=== PATIENT | female | born 1955 | race Caucasian/White ===

== ENCOUNTER 2019-01-19 08:03 | Inpatient (IN) | payer BC, MEDICARE ==
[2019-01-19] VITALS (10 sets, daily range): BP systolic 105–135; BP diastolic 54–68
[~2019-01-19] VITALS: Ht 167.6 cm; Wt 83.2 kg
[~2019-01-19 08:03] MED LIST: ASCO1CAP2 PO; ASPI81TA50 PO; CHOL10003 PO; CYAN10005 PO; ESTR1TAB15 PO; HYDROmorphone 2 MG/ML VIAL IV PRN; IV RINGERS,LACTATED 1000ML 1,000 ML IV SCH; LEVO112T4 PO; LISI10TA2 PO; LISI1TAB7 PO; MAGN400C PO; MORPHINE SULFATE 2 MG/ML VIAL. IV PRN; MULT1TAB52 PO; NIAC500T PO; NITR100C62 PO; OMEG-117 PO; OMEP20CA10 PO; ONDANSETRON PF 4 MG/2 ML VIAL. IV PRN; PROCHLORPERAZINE 10 MG/2 ML VIAL. IV PRN; [UNRECOGNIZED DRUG - OTHER] PO; fentaNYL PF VIAL 100 MCG/2 ML VIAL IV PRN; potassium otc
[2019-01-19] MEDS ORDERED: BUPIVAC MPF-EPI 0.5%-1:200000 30 ML VIAL. ONE (09:12)
[2019-01-19] MEDS ORDERED: fentaNYL PF VIAL 100 MCG/2 ML VIAL ONE ×2 (09:19→12:46)
[2019-01-19] MEDS ORDERED: PROPOFOL 20 ML IV ONE (09:19)
[2019-01-19] MEDS ORDERED: LIDOCAINE 2% PF 5 ML VIAL. ONE (09:19)
[2019-01-19] MEDS ORDERED: MIDAZOLAM HCL/PF 2 MG/2 ML VIAL. ONE (09:19)
[2019-01-19] MEDS ORDERED: DEXAMETHASONE SOD PHOS 4 MG/ML VIAL ONE (09:19)
[2019-01-19] MEDS ORDERED: ONDANSETRON PF 4 MG/2 ML VIAL. ONE (09:19)
[2019-01-19] MEDS ORDERED: ROCURONIUM 50 MG/5 ML VIAL. ONE ×2 (09:19→11:05)
[2019-01-19] MEDS ORDERED: ACETAMINOPHEN 500 MG TABLET PO ONE (09:30)
[2019-01-19] MEDS ORDERED: IBUPROFEN 400 MG TABLET. PO ONE (09:30)
[2019-01-19] MEDS ORDERED: KETAMINE HCL IN NACL, ISO-OSM 50 MG/5 ML SYRINGE ONE (09:52)
[2019-01-19] MEDS ORDERED: NEOSTIGMINE METHYLSULFATE 5 MG/5 ML SYRINGE. ONE (10:17)
[2019-01-19] MEDS ORDERED: GLYCOPYRROLATE 1 MG/5 ML VIAL. ONE (10:17)
[2019-01-19] MEDS ORDERED: hydrALAZINE 20 MG/ML VIAL. ONE (10:35)
[2019-01-19] MEDS ORDERED: ePHEDrine PF IN SALINE 50 MG/10 ML SYRINGE. IV ONE (11:36)
[2019-01-19] MEDS ORDERED: SEVOFLURANE > 120 MINUTES. IH ONE (12:13)
[2019-01-19] MEDS ORDERED: 0.9 % SODIUM CHLORIDE 10 ML DISP.SYRIN. IV PRN (12:45)
[2019-01-19] MEDS ORDERED: PROCHLORPERAZINE 10 MG/2 ML VIAL. IV PRN (12:45)
[2019-01-19] MEDS ORDERED: HYDROmorphone 12mg/30ml PCA 30 ML IV PRN (12:45)
[2019-01-19] MEDS ORDERED: ONDANSETRON PF 4 MG/2 ML VIAL. IV PRN (12:45)
[2019-01-19] MEDS: fentaNYL PF VIAL 100 MCG/2 ML VIAL IV PRN ×2 (12:53→13:05)
--- NOTE | 2019-01-19 13:03 | PDOC4 ---
Operative Note Operative Note Operative Note: Preoperative Diagnosis: Terminal ileitis Postoperative Diagnosis: Same Procedure: Laparoscopic right colon resection Surgeon: Grover Puppet Developer: Ashley RIOS Anesthesia: Gen. EBL: 50 mL Specimen: Right colon to pathology Drains: Ronald drain to subcutaneous tissue Complications: None Indication: The patient is a 63-year-old female who has been expressing chronic intermittent right lower quadrant pain. Her prior endoscopic evaluation identified an ulcer at the ileocecal valve. A follow-up endoscopy showed some improvement of the ulcer however she continued to have friability and inflammation of the region. Has been no other source to explain her symptoms. Christy oates was referred to consider surgical options. We discussed that a laparoscopic right colon resection could be performed and may be of benefit. However there is no absolute guarantee. The risks of surgery were discussed at length with the patient which include bleeding, infection, anastomotic leak, visceral injury, pain, anesthetic risk, potential need for additional surgery or procedure, continued symptoms. She understands and would like to proceed. Description: The patient was taken to the operating room placed supine on the operating table. Gen. anesthesia was performed. The abdomen was prepped with Ch loraPrep and draped in a standard surgical manner. A small incision was made in the left upper abdomen through which a visualized 5 mm trocar was inserted. A pneumoperitoneum was created and the laparoscope was introduced. In the left lower quadrant a 5 mm trocar was inserted and in the lower midabdomen and another 5 mm trocar was inserted. Initial inspection showed a normal appearing cecum was some degree of redundancy. The terminal ileum was grossly normal. The appendix was also visualized and showed no abnormalities. The small bowel was run distal to proximal and there was no evidence of a Meckel's diverticulum. We proceeded with a laparoscopic right colectomy. The lateral peritoneal attachments of the entire ascending colon were divided using a Harmonic scalpel. Another 5 mm trochar was placed in the superior midabdomen. The hepatic flexure attachments were also taken down. The duodenum was identified and preserved. At this point there was excellent mobility of the entire right colon and proximal transverse colon. A small midline extraction incision was then made with a scalpel. Cautery dissection was carried down to the fascia and the fascia was opened for the length of the incision. The Eliu retractor was then placed. The terminal ileum and right colon were then delivered extracorporeally. The distal ileum was divided with a JUDIT-75 stapling device. Similarly the proximal mcpherson sverse colon was divided with a stapler load. The mesentery of the right colon was then dissected. Blood vessels were ligated with 2-0 Vicryl and divided. The LigaSure device assisted with mesenteric dissection. The right colon was then fully excised and sent to pathology. A stapled side to side functional end-to-end anastomosis was then constructed. Small enterotomies were made in both the distal ileum and colon segments. The stapler was introduced into each limb of bowel and deployed creating the anastomosis. The common enterotomy was oversewn with 3-0 PDS. All of the staple lines were reinforced with 3-0 Vicryl sutures placed in the seromuscular layer. The mesenteric defect was then closed with 2-0 Vicryl and the bowel was returned intracorporeally. The fascia was closed with 1 PDS. The abdomen was then reinsufflated and reinspected. Hemostasis was good and the anastomosis had an appropriate configuration with no tension. The pneumoperitoneum was then relieved and the laparoscopic ports were then removed. A quarter inch [place] drain was left in the midline incision which exited inferiorly. This was secured to the skin with 3-0 Vicryl. The subcutaneous tissue was approximated with 3-0 Vicryl. The skin at all incisions was closed with 4-0 Monocryl. The skin of the extraction incision was infiltrated with half percent Marcaine with epinephrine. Steri-Strips and a sterile dressing were applied. The patient tolerated the procedure well and was sent to the recovery room in stable condition. At the end of the case all counts were correct. PEEWEE RIVAS MD January 19, 2019 13:03
[2019-01-19] MEDS: POTASSIUM CL 20MEQ D5-0.45NACL 1,000 ML IV SCH (19:06)
[2019-01-19] MEDS ORDERED: LEVO125T5 PO (19:31)
[2019-01-19] MEDS: NIACIN ER 500 MG TABLET.ER PO SCH (20:56)
[2019-01-19] MEDS: LISINOPRIL 10 MG TABLET PO SCH (20:57)
[2019-01-20] VITALS (7 sets, daily range): BP systolic 99–143; BP diastolic 43–76
[2019-01-20] MEDS: ENOXAPARIN 40 MG/0.4 ML SYRINGE. SQ SCH ×2 (00:09→21:12)
[2019-01-20] MEDS: POTASSIUM CL 20MEQ D5-0.45NACL 1,000 ML IV SCH ×3 (05:04→21:09)
[2019-01-20] MEDS: LEVOTHYROXINE 125 MCG TABLET PO SCH (05:05)
[2019-01-20 05:18] LABS: BASO % 0 % (0-3); EOS % 0 % (0-3); HEMATOCRIT 37.2 % (36.0-47.0); HEMOGLOBIN 12.7 g/dL (12.0-15.5); LYMPH # 1.1 x10^3/uL (1.0-4.8); LYMPH % 9 % (24-48); MEAN CORPUSCULAR HEMOGLOBIN 32 pg (25-35); MEAN CORPUSCULAR HGB CONC 34 g/dL (31-37); MEAN CORPUSCULAR VOLUME 93 fL (79-100); MONO # 0.9 x10^3/uL (0.0-1.1); MONO % 8 % (0-9); NEUT # 10.4 x10^3uL (1.8-7.7); NEUT % 84 % (31-73); PLATELET COUNT 277 x10^3/uL (140-400); RED CELL DISTRIBUTION WIDTH 12.8 % (11.5-14.5); WHITE BLOOD COUNT 12.4 x10^3/uL (4.0-11.0)
[2019-01-20 05:27] LABS: CALCIUM 8.3 mg/dL (8.5-10.1); CREATININE 0.8 mg/dL (0.6-1.0)
[2019-01-20] MEDS ORDERED: LEVOTHYROXINE 112 MCG TABLET PO SCH (06:00)
[2019-01-20] MEDS: PANTOPRAZOLE 40 MG TABLET.DR. PO SCH (06:22)
--- NOTE | 2019-01-20 07:18 | NUR ---
This nurse removed Morillo catheter. Pt tolerated well. Signs and symptom addressed. Will continue to monitor.
[2019-01-20] MEDS: LISINOPRIL 20 MG TABLET PO SCH (09:00)
[2019-01-20] MEDS ORDERED: NON FORMULARY ITEM (Lisinopril/Hydrochlorothiazide (Lisinopril-Hctz 20-25 Mg Tab) 1 TAB) PO SCH (09:00)
[2019-01-20] MEDS: hydroCHLOROthiazide 25 MG TABLET PO SCH (09:12)
[2019-01-20] MEDS: ESTRADIOL 1 MG TABLET. PO SCH (10:21)
--- NOTE | 2019-01-20 12:10 | PDOC ---
CHARY JUAN MEASUREMENT COORDINATOR 01/20/19 1210: SURGICAL PROGRESS NOTE Subjective resting pain managed no nausea no flatus mild bloating Vital Signs Vital Signs Date Time Temp Pulse Resp B/P (MAP) Pulse Ox O2 Delivery O2 Flow Rate FiO2 01/20/19 10:59 97.6 54 18 104/49 (67) 99 Room Air 97.6 01/19/19 14:20 1.0 I&O Intake and Output 01/20/19 06:59 Intake Total 2550 ml Output Total 1525 ml Balance 1025 ml Intake IV Total 2550 ml Output Urine Total 1475 ml Estimated Blood Loss 50 ml General: Alert, Oriented X3, Cooperative, No acute distress Abdomen: Soft, Other (dressing dry, ND) Labs Laboratory Tests Test 01/20/19 04:30 White Blood Count 12.4 x10^3/uL (4.0-11.0) Red Blood Count 4.00 x10^6/uL (3.50-5.40) Hemoglobin 12.7 g/dL (12.0-15.5) Hematocrit 37.2 % (36.0-47.0) Mean Corpuscular Volume 93 fL (79-100) Mean Corpuscular Hemoglobin 32 pg (25-35) Mean Corpuscular Hemoglobin Concent 34 g/dL (31-37) Red Cell Distribution Width 12.8 % (11.5-14.5) Platelet Count 277 x10^3/uL (140-400) Neutrophils (%) (Auto) 84 % (31-73) Lymphocytes (%) (Auto) 9 % (24-48) Monocytes (%) (Auto) 8 % (0-9) Eosinophils (%) (Auto) 0 % (0-3) Basophils (%) (Auto) 0 % (0-3) Neutrophils # (Auto) 10.4 x10^3uL (1.8-7.7) Lymphocytes # (Auto) 1.1 x10^3/uL (1.0-4.8) Monocytes # (Auto) 0.9 x10^3/uL (0.0-1.1) Eosinophils # (Auto) 0.0 x10^3/uL (0.0-0.7) Basophils # (Auto) 0.0 x10^3/uL (0.0-0.2) Sodium Level 135 mmol/L (136-145) Potassium Level 4.0 mmol/L (3.5-5.1) Chloride Level 104 mmol/L (98-107) Carbon Dioxide Level 23 mmol/L (21-32) Anion Gap 8 (6-14) Blood Urea Nitrogen 8 mg/dL (7-20) Creatinine 0.8 mg/dL (0.6-1.0) Estimated GFR (Cockcroft-Gault) 72.0 Glucose Level 153 mg/dL (70-99) Calcium Level 8.3 mg/dL (8.5-10.1) Laboratory Tests Test 01/20/19 04:30 White Blood Count 12.4 x10^3/uL (4.0-11.0) Red Blood Count 4.00 x10^6/uL (3.50-5.40) Hemoglobin 12.7 g/dL (12.0-15.5) Hematocrit 37.2 % (36.0-47.0) Mean Corpuscular Volume 93 fL (79-100) Mean Corpuscular Hemoglobin 32 pg (25-35) Mean Corpuscular Hemoglobin Concent 34 g/dL (31-37) Red Cell Distribution Width 12.8 % (11.5-14.5) Platelet Count 277 x10^3/uL (140-400) Neutrophils (%) (Auto) 84 % (31-73) Lymphocytes (%) (Auto) 9 % (24-48) Monocytes (%) (Auto) 8 % (0-9) Eosinophils (%) (Auto) 0 % (0-3) Basophils (%) (Auto) 0 % (0-3) Neutrophils # (Auto) 10.4 x10^3uL (1.8-7.7) Lymphocytes # (Auto) 1.1 x10^3/uL (1.0-4.8) Monocytes # (Auto) 0.9 x10^3/uL (0.0-1.1) Eosinophils # (Auto) 0.0 x10^3/uL (0.0-0.7) Basophils # (Auto) 0.0 x10^3/uL (0.0-0.2) Sodium Level 135 mmol/L (136-145) Potassium Level 4.0 mmol/L (3.5-5.1) Chloride Level 104 mmol/L (98-107) Carbon Dioxide Level 23 mmol/L (21-32) Anion Gap 8 (6-14) Blood Urea Nitrogen 8 mg/dL (7-20) Creatinine 0.8 mg/dL (0.6-1.0) Estimated GFR (Cockcroft-Gault) 72.0 Glucose Level 153 mg/dL (70-99) Calcium Level 8.3 mg/dL (8.5-10.1) Assessment/Plan POD#1 lap right colon await bowel function increase activity PEEWEE RIVAS MD 01/20/19 1253: SURGICAL PROGRESS NOTE Assessment/Plan agree with above CHARY JUAN MEASUREMENT COORDINATOR January 20, 2019 12:10 PEEWEE RIVAS MD January 20, 2019 12:53
--- NOTE | 2019-01-20 12:46 | NUR ---
SW following for discharge planning. Discussed with RN, pt had a colectomy and is currently NPO. RN advised no SW needs at this time. SW will continue to follow.
[2019-01-20] MEDS: NIACIN ER 500 MG TABLET.ER PO SCH (21:11)
[2019-01-20] MEDS: LISINOPRIL 10 MG TABLET PO SCH (21:12)
[2019-01-20] MEDS: MORPHINE SULFATE 2 MG/ML VIAL. IV PRN (22:12)
[2019-01-21] MEDS ORDERED: diphenhydrAMINE HCL 25 MG CAPSULE PO ONE (01:15)
[2019-01-21 03:04] VITALS: BP 127/60
[2019-01-21] MEDS: LEVOTHYROXINE 125 MCG TABLET PO SCH (05:08)
[2019-01-21] MEDS: MORPHINE SULFATE 2 MG/ML VIAL. IV PRN ×3 (05:08→22:19)
[2019-01-21] MEDS: PANTOPRAZOLE 40 MG TABLET.DR. PO SCH (05:08)
[2019-01-21] MEDS: POTASSIUM CL 20MEQ D5-0.45NACL 1,000 ML IV SCH ×2 (05:10→17:54)
[2019-01-21 07:00] VITALS: BP 123/70
[2019-01-21] MEDS: LISINOPRIL 20 MG TABLET PO SCH (09:00)
[2019-01-21] MEDS: hydroCHLOROthiazide 25 MG TABLET PO SCH (09:00)
[2019-01-21] MEDS: ESTRADIOL 1 MG TABLET. PO SCH (09:00)
--- NOTE | 2019-01-21 09:38 | PDOC ---
SURGICAL PROGRESS NOTE Subjective no nausea slept last night no flatus, some liquid green stool Vital Signs Vital Signs Date Time Temp Pulse Resp B/P (MAP) Pulse Ox O2 Delivery O2 Flow Rate FiO2 01/21/19 09:00 63 123/70 01/21/19 07:00 98.1 18 97 Room Air 98.1 General: Alert, Oriented X3, Cooperative, No acute distress Abdomen: Soft, Other (ND, incision c/d/i, no erythema, jay in place ) Labs Laboratory Tests Test 01/20/19 04:30 White Blood Count 12.4 x10^3/uL (4.0-11.0) Red Blood Count 4.00 x10^6/uL (3.50-5.40) Hemoglobin 12.7 g/dL (12.0-15.5) Hematocrit 37.2 % (36.0-47.0) Mean Corpuscular Volume 93 fL (79-100) Mean Corpuscular Hemoglobin 32 pg (25-35) Mean Corpuscular Hemoglobin Concent 34 g/dL (31-37) Red Cell Distribution Width 12.8 % (11.5-14.5) Platelet Count 277 x10^3/uL (140-400) Neutrophils (%) (Auto) 84 % (31-73) Lymphocytes (%) (Auto) 9 % (24-48) Monocytes (%) (Auto) 8 % (0-9) Eosinophils (%) (Auto) 0 % (0-3) Basophils (%) (Auto) 0 % (0-3) Neutrophils # (Auto) 10.4 x10^3uL (1.8-7.7) Lymphocytes # (Auto) 1.1 x10^3/uL (1.0-4.8) Monocytes # (Auto) 0.9 x10^3/uL (0.0-1.1) Eosinophils # (Auto) 0.0 x10^3/uL (0.0-0.7) Basophils # (Auto) 0.0 x10^3/uL (0.0-0.2) Sodium Level 135 mmol/L (136-145) Potassium Level 4.0 mmol/L (3.5-5.1) Chloride Level 104 mmol/L (98-107) Carbon Dioxide Level 23 mmol/L (21-32) Anion Gap 8 (6-14) Blood Urea Nitrogen 8 mg/dL (7-20) Creatinine 0.8 mg/dL (0.6-1.0) Estimated GFR (Cockcroft-Gault) 72.0 Glucose Level 153 mg/dL (70-99) Calcium Level 8.3 mg/dL (8.5-10.1) Problem List s/p lap right colon await bowel function increase activity CHARY JUAN APRN January 21, 2019 09:38
[2019-01-21 11:00] VITALS: BP 157/70
--- NOTE | 2019-01-21 12:35 | NUR ---
SW following. Discussed with RN, pt currently NPO. RN advised no SW needs at this time. SW will continue to follow for any discharge planning needs.
[2019-01-21 15:00] VITALS: BP 133/69
--- NOTE | 2019-01-21 18:06 | PATHOLOGY ---
[facility] Accession Number: [id number] . 01 Material submitted: . colon - RIGHT COLON. Modifiers: right . 01 Clinical history: . Abdominal pain r/t ulcer Question terminal ileitis . 02 Diagnosis: Segment of distal ileum, cecum and attached appendix, and ascending colon with attached mesocolon, laparoscopic right colectomy: - Mild adiposity of ileocecal valve with focal attenuation and mild nonspecific inflammation within increased eosinophils of ileocecal valve mucosa. 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 (JPM:kathia; 01/21/2019) R/01/21/2019 . 02 Comment: The ulcer of the ileocecal valve apparently has healed. The appendix shows fibrous obliteration of the distal appendiceal lumen and neuromatous change of the appendiceal mucosa. There is no evidence of an acute appendicitis. (JPM:entertainer & comic; 01/21/2019) . 02 Electronically signed: . Jose Jamil MD, Pathologist NPI- [id number] . 01 Gross description: . The specimen is received in formalin, labeled "Kris, Delfina, right colon" and consists of a right hemicolectomy specimen with terminal ileum (5.5 cm in length and 2.3 cm in diameter), appendix 7.0 cm in length and 0.5 cm in diameter), ascending colon (14.0 cm in length and up to 4.8 cm in diameter), and mesocolic tissue up to 4.0 cm in greatest thickness. Both margins are closed with ernesto. The serosa is ga-thompson with edematous creeping adhesions on the cecum and ascending colon. Opening reveals a pink-thompson terminal ileum mucosa with no masses or gross lesions. The ascending colon mucosa is pink-thompson with no gross lesions. The ileocecal valve is markedly erythematous and slightly fatty. No masses are identified. The appendix serosa is ga-thompson with smooth, shiny with sectioning revealing a lumen with no gross lesions. Zoo Keeper sections are submitted as follows: . A1: Proximal margin A2: Distal margin A3: Terminal ileum A4: Ileocecal valve A5: Ascending colon A6: Appendix (SDY; 01/20/2019) SYU/SYU . 02 Pathologist provided ICD-10: K52.9 . 02 CPT . 329085 Specimen Comment: A courtesy copy of this report has been sent to Specimen Comment: [phone], . Specimen Comment: Report sent to / DR GUERRA Performed at: 01 [facility] [address], [place] [id number] MD Arsh Montez MD Phone: [phone] Performed at: 02 [facility] [address] [place], [place] [id number] MD Jose Jamil MD Phone: [phone]
[2019-01-21 19:00] VITALS: BP 142/106
[2019-01-21] MEDS: NIACIN ER 500 MG TABLET.ER PO SCH (20:34)
[2019-01-21] MEDS: ENOXAPARIN 40 MG/0.4 ML SYRINGE. SQ SCH (20:34)
[2019-01-21] MEDS: LISINOPRIL 10 MG TABLET PO SCH (20:34)
[2019-01-21 22:35] VITALS: BP 124/68
[2019-01-22 03:00] VITALS: BP 110/59
[2019-01-22] MEDS: POTASSIUM CL 20MEQ D5-0.45NACL 1,000 ML IV SCH ×3 (03:40→23:00)
[2019-01-22] MEDS: PANTOPRAZOLE 40 MG TABLET.DR. PO SCH (05:17)
[2019-01-22] MEDS: LEVOTHYROXINE 125 MCG TABLET PO SCH (05:17)
[2019-01-22 07:00] VITALS: BP 110/59
[2019-01-22] MEDS: LISINOPRIL 20 MG TABLET PO SCH (08:08)
[2019-01-22] MEDS: ESTRADIOL 1 MG TABLET. PO SCH (08:09)
--- NOTE | 2019-01-22 08:38 | PDOC ---
SURGICAL PROGRESS NOTE Subjective + flatus and loose stool no nausea pain managed Vital Signs Vital Signs Date Time Temp Pulse Resp B/P (MAP) Pulse Ox O2 Delivery O2 Flow Rate FiO2 01/22/19 08:08 60 110/59 01/22/19 03:00 97.7 18 94 Room Air 97.7 I&O Intake and Output 01/22/19 07:00 Intake Total 1000 ml Output Total 5 ml Balance 995 ml Intake IV Total 1000 ml Output Urine Total 4 ml Stool Total 1 ml # Voids 3 General: Alert, Oriented X3, Cooperative, No acute distress Abdomen: Soft, Other (ND, NTTP, dressing dry) Assessment/Plan s/p right colon will start clears, oral pain meds CHARY JUAN LIME MIXER TENDER January 22, 2019 08:38
[2019-01-22] MEDS ORDERED: oxyCODONE/APAP 5/325 1 TAB TABLET PO PRN (08:45)
[2019-01-22] MEDS: hydroCHLOROthiazide 25 MG TABLET PO SCH (09:00)
[2019-01-22 11:00] VITALS: BP 119/62
[2019-01-22 19:00] VITALS: BP 140/67
[2019-01-22 19:39] VITALS: BP 127/71
[2019-01-22] MEDS: NIACIN ER 500 MG TABLET.ER PO SCH (22:13)
[2019-01-22] MEDS: ENOXAPARIN 40 MG/0.4 ML SYRINGE. SQ SCH (22:14)
[2019-01-22] MEDS: LISINOPRIL 10 MG TABLET PO SCH (22:14)
[2019-01-22 23:20] VITALS: BP 135/62
[2019-01-23 03:46] VITALS: BP 114/62
[2019-01-23] MEDS: LEVOTHYROXINE 125 MCG TABLET PO SCH (06:10)
[2019-01-23] MEDS: PANTOPRAZOLE 40 MG TABLET.DR. PO SCH (06:10)
[2019-01-23 07:00] VITALS: BP 111/85
[2019-01-23] MEDS: hydroCHLOROthiazide 25 MG TABLET PO SCH (08:56)
[2019-01-23] MEDS: ESTRADIOL 1 MG TABLET. PO SCH (08:56)
[2019-01-23] MEDS: POTASSIUM CL 20MEQ D5-0.45NACL 1,000 ML IV SCH (09:00)
[2019-01-23] MEDS: LISINOPRIL 20 MG TABLET PO SCH (09:04)
--- NOTE | 2019-01-23 09:16 | PDOC ---
PROGRESS NOTES Subjective Subjective doing well, newton clears, passing gas, some loose stool Objective Objective Vital Signs Date Time Temp Pulse Resp B/P (MAP) Pulse Ox O2 Delivery O2 Flow Rate FiO2 01/23/19 09:04 62 111/85 01/23/19 07:00 98.0 17 95 Room Air 98.0 01/19/19 14:20 1.0 Intake and Output 01/23/19 07:00 Intake Total 640 ml Output Total 3 ml Balance 637 ml Intake Oral 640 ml Output Urine Total 3 ml # Voids 3 Physical Exam Abdomen: Soft, No tenderness Plan Plan of Care advance diet, poss DC tomorrow Comment Review of Relevant I have reviewed the following items koki (where applicable) has been applied. Medications Current Medications Ondansetron HCl (Zofran) 4 mg PRN Q6HRS PRN IV NAUSEA/VOMITING; Start 01/19/19 at 07:00; Stop 01/20/19 at 06:59; Status DC Fentanyl Citrate (Fentanyl 2ml Vial) 25 mcg PRN Q5MIN PRN IV MILD PAIN Last administered on 01/19/19at 13:05; Start 01/19/19 at 07:00; Stop 01/20/19 at 06:59; Status DC Fentanyl Citrate (Fentanyl 2ml Vial) 50 mcg PRN Q5MIN PRN IV MODERATE TO SEVERE PAIN; Start 01/19/19 at 07:00; Stop 01/20/19 at 06:59; Status DC Morphine Sulfate (Morphine Sulfate) 1 mg PRN Q10MIN PRN IV SEVERE PAIN; Start 01/19/19 at 07:00; Stop 01/20/19 at 06:59; Status DC Ringer's Solution 1,000 ml @ 30 mls/hr Q24H IV Last administered on 01/19/19at 09:00; Start 01/19/19 at 07:00; Stop 01/19/19 at 18:59; Status DC Hydromorphone HCl (Dilaudid) 0.5 mg PRN Q10MIN PRN IV SEV PAIN, Second choice; Start 01/19/19 at 07:00; Stop 01/20/19 at 06:59; Status DC Prochlorperazine Edisylate (Compazine) 5 mg PACU PRN PRN IV NAUSEA, MRX1; Start 01/19/19 at 07:00; Stop 01/20/19 at 06:59; Status DC Cefazolin Sodium/ Dextrose 50 ml @ 100 mls/hr 1X PREOP PRN IV PRIOR TO PROCEDURE Last administered on 01/19/19at 09:47; Start 01/19/19 at 06:00; Stop 01/19/19 at 18:00; Status DC Metronidazole 100 ml @ 100 mls/hr 1X PREOP PRN IV PRIOR TO PROCEDURE Last administered on 01/19/19at 12:51; Start 01/19/19 at 06:00; Stop 01/19/19 at 18:00; Status DC Propofol 20 ml @ As Directed STK-MED ONCE IV ; Start 01/19/19 at 09:19; Stop 01/19/19 at 09:20; Status DC Lidocaine HCl (Lidocaine Pf 2% Vial) 5 ml STK-MED ONCE .ROUTE ; Start 01/19/19 at 09:19; Stop 01/19/19 at 09:20; Status DC Ondansetron HCl (Zofran) 4 mg STK-MED ONCE .ROUTE ; Start 01/19/19 at 09:19; Stop 01/19/19 at 09:20; Status DC Dexamethasone Sodium Phosphate (Decadron) 4 mg STK-MED ONCE .ROUTE ; Start 01/19/19 at 09:19; Stop 01/19/19 at 09:20; Status DC Rocuronium [place] (Zemuron) 50 mg STK-MED ONCE .ROUTE ; Start 01/19/19 at 09:19; Stop 01/19/19 at 09:20; Status DC Fentanyl Citrate (Fentanyl 2ml Vial) 100 mcg STK-MED ONCE .ROUTE ; Start 01/19/19 at 09:19; Stop 01/19/19 at 09:20; Status DC Midazolam HCl (Versed) 2 mg STK-MED ONCE .ROUTE ; Start 01/19/19 at 09:19; Stop 01/19/19 at 09:20; Status DC Ibuprofen (Motrin) 800 mg 1X ONCE PO Last administered on 01/19/19at 09:34; Start 01/19/19 at 09:30; Stop 01/19/19 at 09:31; Status DC Acetaminophen (Tylenol) 1,000 mg 1X ONCE PO Last administered on 01/19/19at 09:34; Start 01/19/19 at 09:30; Stop 01/19/19 at 09:31; Status DC Ketamine HCl (Ketamine) 50 mg STK-MED ONCE .ROUTE ; Start 01/19/19 at 09:52; Stop 01/19/19 at 09:53; Status DC Bupivacaine HCl/ Epinephrine Bitart (Sensorcain-Mpf Epi 0.5%-1:[id number]) 30 ml STK-MED ONCE .ROUTE Last administered on 01/19/19at 10:20; Start 01/19/19 at 09:12; Stop 01/19/19 at 10:13; Status DC Glycopyrrolate (Robinul) 1 mg STK-MED ONCE .ROUTE ; Start 01/19/19 at 10:17; Stop 01/19/19 at 10:18; Status DC Neostigmine Methylsulfate (Neostigmine Methylsulfate) 5 mg STK-MED ONCE .ROUTE ; Start 01/19/19 at 10:17; Stop 01/19/19 at 10:18; Status DC Hydralazine HCl (Apresoline Inj) 20 mg STK-MED ONCE .ROUTE ; Start 01/19/19 at 10:35; Stop 01/19/19 at 10:36; Status DC Rocuronium [place] (Zemuron) 50 mg STK-MED ONCE .ROUTE ; Start 01/19/19 at 11:05; Stop 01/19/19 at 11:06; Status DC Ephedrine Sulfate (ePHEDrine PF IN SALINE SYRINGE) 50 mg STK-MED ONCE IV ; Start 01/19/19 at 11:36; Stop 01/19/19 at 11:37; Status DC Sevoflurane (Ultane) 90 ml STK-MED ONCE IH ; Start 01/19/19 at 12:13; Stop 01/19/19 at 12:14; Status DC Enoxaparin Sodium (Lovenox 40mg Syringe) 40 mg Q24H SQ Last administered on 01/22/19at 22:14; Start 01/19/19 at 21:00 Sodium Chloride (Normal Saline Flush) 3 ml QSHIFT PRN IV AFTER MEDS AND BLOOD DRAWS; Start 01/19/19 at 12:45 Potassium Chloride/Dextrose/ Sod Cl 1,000 ml @ 100 mls/hr Q10H IV Last administered on 01/22/19at 23:00; Start 01/19/19 at 15:00 Hydromorphone HCl 30 ml @ 0 mls/hr CONT PRN PRN IV PER PROTOCOL Last administered on 01/19/19at 13:30; Start 01/19/19 at 12:45 Ondansetron HCl (Zofran) 4 mg PRN Q6HRS PRN IV NAUESA, 1ST CHOICE; Start 01/19/19 at 12:45 Prochlorperazine Edisylate (Compazine) 5 mg PRN Q6HRS PRN IV N/V, 2nd Choice, MR X1; Start 01/19/19 at 12:45 Estradiol (Estrace) 1 mg DAILY PO Last administered on 01/23/19 08:56; Start 01/20/19 at 09:00 Levothyroxine Sodium (Synthroid) 112 mcg DAILY06 PO ; Start 01/20/19 at 06:00; Stop 01/20/19 at 06:00; Status DC Lisinopril (Prinivil) 10 mg HS PO Last administered on 01/22/19at 22:14; Start 01/19/19 at 21:00 Niacin (Slo-Niacin) 500 mg QHS PO Last administered on 01/22/19 22:13; Start 01/19/19 at 21:00 Non-Formulary Medication (Lisinopril/ Hydrochlorothiazide (Lisinopril-Hctz 20-25 Mg Tab)) 1 tab DAILY PO ; Start 01/20/19 at 09:00; Status UNV Pantoprazole Sodium (Protonix) 40 mg DAILYAC PO Last administered on 01/23/19 06:10; Start 01/20/19 at 07:30 Fentanyl Citrate (Fentanyl 2ml Vial) 100 mcg STK-MED ONCE .ROUTE ; Start 01/19/19 at 12:46; Stop 01/19/19 at 12:47; Status DC Lisinopril (Prinivil) 20 mg DAILY PO Last administered on 01/23/19 09:04; Start 01/20/19 at 09:00 Hydrochlorothiazide (Hydrodiuril) 25 mg DAILY PO Last administered on 01/23/19 08:56; Start 01/20/19 at 09:00 Levothyroxine Sodium (Synthroid) 125 mcg DAILY06 PO Last administered on 5/ 5/19at 06:10; Start 01/20/19 at 06:00 Morphine Sulfate (Morphine Sulfate) 1 mg PRN Q1HR PRN IV PAIN Last administered on 01/21/19at 22:19; Start 01/20/19 at 20:15 Diphenhydramine HCl (Benadryl) 25 mg 1X ONCE PO ; Start 01/21/19 at 01:15; Stop 01/21/19 at 01:19; Status DC Oxycodone/ Acetaminophen (Percocet 5/325) 1 tab PRN Q4HRS PRN PO PAIN; Start 01/22/19 at 08:45 Active Scripts Active Reported Levothyroxine Sodium 125 Mcg Tablet 1 Tab PO DAILY Macrobid 100 Mg Capsule (Nitrofurantoin Monohyd/M-Cryst) 100 Mg Capsule 1 Cap PO 1X PRN Vitamin B-12 (Cyanocobalamin (Vitamin B-12)) 1,000 Mcg Tablet 5,000 Mcg PO DAILY Vitamin D3 (Cholecalciferol (Vitamin D3)) 1,000 Unit Tablet 2,000 Unit PO DAILY [potassium otc] 99 Mg DAILY Ocuvite Adult 50 Plus Softgel (C,E,Zinc,Copper 24/Om3/Lut/Eric) 1 Each Capsule 1 Each PO DAILY Niaspan (Niacin) 500 Mg Tab.er.24h 1 Tab PO QHS Magnesium (Magnesium Oxide) 400 Mg Capsule 1 Cap PO DAILY Fish Oil 1,200 mg Softgel ([place]-3/Dha/Epa/Fish Oil) 1 Each Capsule. 1 Each PO DAILY Aspir-Low (Aspirin) 81 Mg Tablet. 1 Tab PO DAILY Lisinopril 10 Mg Tablet 1 Tab PO HS Estradiol 1 Mg Tablet 1 Tab PO DAILY Omeprazole 20 Mg Capsule.dr 1 Cap PO DAILY Lisinopril-Hctz 20-25 Mg Tab (Lisinopril/Hydrochlorothiazide) 1 Each Tablet 1 Tab PO DAILY Vitals/I & O Vital Sign - Last 24 Hours 01/22/19 01/22/19 01/22/19 01/22/19 11:00 19:00 19:39 20:00 Temp 98.4 98.7 97.8 98.4 98.7 97.8 Pulse 69 72 78 Resp 18 18 18 B/P (MAP) 119/62 (81) 140/67 (91) 127/71 (89) Pulse Ox 99 92 95 O2 Delivery Room Air Room Air Room Air Room Air 01/22/19 01/22/19 01/23/19 01/23/19 22:14 23:20 03:46 07:00 Temp 98.2 97.6 98.0 98.2 97.6 98.0 Pulse 78 60 62 62 Resp 18 18 17 B/P (MAP) 127/71 135/62 (86) 114/62 (79) 111/85 (94) Pulse Ox 96 96 95 O2 Delivery Room Air Room Air Room Air 01/23/19 09:04 Pulse 62 B/P (MAP) 111/85 Intake and Output 01/22/19 01/22/19 01/23/19 15:00 23:00 07:00 Intake Total 640 ml Output Total 3 ml Balance -3 ml 640 ml PEEWEE RIVAS MD January 23, 2019 09:16
[2019-01-23] MEDS ORDERED: diphenhydrAMINE HCL 25 MG CAPSULE PO PRN (09:30)
--- NOTE | 2019-01-23 09:30 | NUR ---
Patient requested IV be removed after order received to saline lock this patient. This nurse completed education on importance of IV access, or need to replace IV. Patient stated, "I understand please remove the IV." IV was removed, and this nurse will continue to monitor.
[2019-01-23 11:00] VITALS: BP 134/68
[2019-01-23 15:00] VITALS: BP 141/70
[2019-01-23 19:42] VITALS: BP 119/62
[2019-01-23] MEDS: LISINOPRIL 10 MG TABLET PO SCH (20:47)
[2019-01-23] MEDS: NIACIN ER 500 MG TABLET.ER PO SCH (20:47)
[2019-01-23] MEDS: ENOXAPARIN 40 MG/0.4 ML SYRINGE. SQ SCH (21:29)
[2019-01-23 23:20] VITALS: BP 100/49
[2019-01-24 03:20] VITALS: BP 106/49
[2019-01-24] MEDS: LEVOTHYROXINE 125 MCG TABLET PO SCH (05:59)
[2019-01-24] MEDS: PANTOPRAZOLE 40 MG TABLET.DR. PO SCH (05:59)
[2019-01-24 07:00] VITALS: BP 111/61
[2019-01-24] MEDS: hydroCHLOROthiazide 25 MG TABLET PO SCH (09:15)
[2019-01-24] MEDS: LISINOPRIL 20 MG TABLET PO SCH (09:15)
[2019-01-24] MEDS: ESTRADIOL 1 MG TABLET. PO SCH (09:16)
--- NOTE | 2019-01-24 10:09 | PDOC ---
PROGRESS NOTES Subjective Subjective doing well, passing gas, some mucus, loose stool, no significant formed stool Objective Objective Vital Signs Date Time Temp Pulse Resp B/P (MAP) Pulse Ox O2 Delivery O2 Flow Rate FiO2 01/24/19 09:15 63 111/61 01/24/19 07:00 97.5 18 94 Room Air 97.5 01/19/19 14:20 1.0 Intake and Output 01/24/19 06:59 Intake Total 1260 ml Output Total 1 ml Balance 1259 ml Intake Oral 1260 ml Output Urine Total 1 ml # Voids 4 # Bowel Movements 1 Physical Exam Abdomen: Soft Assessment Assessment S/P ileocolic rxn Plan Plan of Care discharge Comment Review of Relevant I have reviewed the following items koki (where applicable) has been applied. Medications Current Medications Ondansetron HCl (Zofran) 4 mg PRN Q6HRS PRN IV NAUSEA/VOMITING; Start 01/19/19 at 07:00; Stop 01/20/19 at 06:59; Status DC Fentanyl Citrate (Fentanyl 2ml Vial) 25 mcg PRN Q5MIN PRN IV MILD PAIN Last administered on 01/19/19at 13:05; Start 01/19/19 at 07:00; Stop 01/20/19 at 06:59; Status DC Fentanyl Citrate (Fentanyl 2ml Vial) 50 mcg PRN Q5MIN PRN IV MODERATE TO SEVERE PAIN; Start 01/19/19 at 07:00; Stop 01/20/19 at 06:59; Status DC Morphine Sulfate (Morphine Sulfate) 1 mg PRN Q10MIN PRN IV SEVERE PAIN; Start 01/19/19 at 07:00; Stop 01/20/19 at 06:59; Status DC Ringer's Solution 1,000 ml @ 30 mls/hr Q24H IV Last administered on 01/19/19at 09:00; Start 01/19/19 at 07:00; Stop 01/19/19 at 18:59; Status DC Hydromorphone HCl (Dilaudid) 0.5 mg PRN Q10MIN PRN IV SEV PAIN, Second choice; Start 01/19/19 at 07:00; Stop 01/20/19 at 06:59; Status DC Prochlorperazine Edisylate (Compazine) 5 mg PACU PRN PRN IV NAUSEA, MRX1; Start 01/19/19 at 07:00; Stop 01/20/19 at 06:59; Status DC Cefazolin Sodium/ Dextrose 50 ml @ 100 mls/hr 1X PREOP PRN IV PRIOR TO PROCEDURE Last administered on 01/19/19at 09:47; Start 01/19/19 at 06:00; Stop 01/19/19 at 18:00; Status DC Metronidazole 100 ml @ 100 mls/hr 1X PREOP PRN IV PRIOR TO PROCEDURE Last administered on 01/19/19at 12:51; Start 01/19/19 at 06:00; Stop 01/19/19 at 18:00; Status DC Propofol 20 ml @ As Directed STK-MED ONCE IV ; Start 01/19/19 at 09:19; Stop 01/19/19 at 09:20; Status DC Lidocaine HCl (Lidocaine Pf 2% Vial) 5 ml STK-MED ONCE .ROUTE ; Start 01/19/19 at 09:19; Stop 01/19/19 at 09:20; Status DC Ondansetron HCl (Zofran) 4 mg STK-MED ONCE .ROUTE ; Start 01/19/19 at 09:19; Stop 01/19/19 at 09:20; Status DC Dexamethasone Sodium Phosphate (Decadron) 4 mg STK-MED ONCE .ROUTE ; Start 01/19/19 at 09:19; Stop 01/19/19 at 09:20; Status DC Rocuronium Lima (Zemuron) 50 mg STK-MED ONCE .ROUTE ; Start 01/19/19 at 09:19; Stop 01/19/19 at 09:20; Status DC Fentanyl Citrate (Fentanyl 2ml Vial) 100 mcg STK-MED ONCE .ROUTE ; Start 01/19/19 at 09:19; Stop 01/19/19 at 09:20; Status DC Midazolam HCl (Versed) 2 mg STK-MED ONCE .ROUTE ; Start 01/19/19 at 09:19; Stop 01/19/19 at 09:20; Status DC Ibuprofen (Motrin) 800 mg 1X ONCE PO Last administered on 01/19/19at 09:34; Start 01/19/19 at 09:30; Stop 01/19/19 at 09:31; Status DC Acetaminophen (Tylenol) 1,000 mg 1X ONCE PO Last administered on 01/19/19at 09:34; Start 01/19/19 at 09:30; Stop 01/19/19 at 09:31; Status DC Ketamine HCl (Ketamine) 50 mg STK-MED ONCE .ROUTE ; Start 01/19/19 at 09:52; Stop 01/19/19 at 09:53; Status DC Bupivacaine HCl/ Epinephrine Bitart (Sensorcain-Mpf Epi 0.5%-1:[id number]) 30 ml STK-MED ONCE .ROUTE Last administered on 01/19/19at 10:20; Start 01/19/19 at 09:12; Stop 01/19/19 at 10:13; Status DC Glycopyrrolate (Robinul) 1 mg STK-MED ONCE .ROUTE ; Start 01/19/19 at 10:17; Stop 01/19/19 at 10:18; Status DC Neostigmine Methylsulfate (Neostigmine Methylsulfate) 5 mg STK-MED ONCE .ROUTE ; Start 01/19/19 at 10:17; Stop 01/19/19 at 10:18; Status DC Hydralazine HCl (Apresoline Inj) 20 mg STK-MED ONCE .ROUTE ; Start 01/19/19 at 10:35; Stop 01/19/19 at 10:36; Status DC Rocuronium Lima (Zemuron) 50 mg STK-MED ONCE .ROUTE ; Start 01/19/19 at 11:05; Stop 01/19/19 at 11:06; Status DC Ephedrine Sulfate (ePHEDrine PF IN SALINE SYRINGE) 50 mg STK-MED ONCE IV ; Start 01/19/19 at 11:36; Stop 01/19/19 at 11:37; Status DC Sevoflurane (Ultane) 90 ml STK-MED ONCE IH ; Start 01/19/19 at 12:13; Stop 01/19/19 at 12:14; Status DC Enoxaparin Sodium (Lovenox 40mg Syringe) 40 mg Q24H SQ Last administered on 01/23/19at 21:29; Start 01/19/19 at 21:00 Sodium Chloride (Normal Saline Flush) 3 ml QSHIFT PRN IV AFTER MEDS AND BLOOD DRAWS; Start 01/19/19 at 12:45 Potassium Chloride/Dextrose/ Sod Cl 1,000 ml @ 100 mls/hr Q10H IV Last administered on 01/22/19at 23:00; Start 01/19/19 at 15:00; Stop 01/23/19 at 11:15; Status DC Hydromorphone HCl 30 ml @ 0 mls/hr CONT PRN PRN IV PER PROTOCOL Last administered on 01/19/19at 13:30; Start 01/19/19 at 12:45 Ondansetron HCl (Zofran) 4 mg PRN Q6HRS PRN IV NAUESA, 1ST CHOICE; Start 01/19/19 at 12:45 Prochlorperazine Edisylate (Compazine) 5 mg PRN Q6HRS PRN IV N/V, 2nd Choice, MR X1; Start 01/19/19 at 12:45 Estradiol (Estrace) 1 mg DAILY PO Last administered on 01/24/19at 09:16; Start 01/20/19 at 09:00 Levothyroxine Sodium (Synthroid) 112 mcg DAILY06 PO ; Start 01/20/19 at 06:00; Stop 01/20/19 at 06:00; Status DC Lisinopril (Prinivil) 10 mg HS PO Last administered on 01/23/19 20:47; Start 01/19/19 at 21:00 Niacin (Slo-Niacin) 500 mg QHS PO Last administered on 01/23/19 20:47; Start 01/19/19 at 21:00 Non-Formulary Medication (Lisinopril/ Hydrochlorothiazide (Lisinopril-Hctz 20-25 Mg Tab)) 1 tab DAILY PO ; Start 01/20/19 at 09:00; Status UNV Pantoprazole Sodium (Protonix) 40 mg DAILYAC PO Last administered on 01/24/19at 05:59; Start 01/20/19 at 07:30 Fentanyl Citrate (Fentanyl 2ml Vial) 100 mcg STK-MED ONCE .ROUTE ; Start 01/19/19 at 12:46; Stop 01/19/19 at 12:47; Status DC Lisinopril (Prinivil) 20 mg DAILY PO Last administered on 01/24/19at 09:15; Start 01/20/19 at 09:00 Hydrochlorothiazide (Hydrodiuril) 25 mg DAILY PO Last administered on 01/24/19at 09:15; Start 01/20/19 at 09:00 Levothyroxine Sodium (Synthroid) 125 mcg DAILY06 PO Last administered on 01/24/19at 05:59; Start 01/20/19 at 06:00 Morphine Sulfate (Morphine Sulfate) 1 mg PRN Q1HR PRN IV PAIN Last administered on 01/21/19at 22:19; Start 01/20/19 at 20:15 Diphenhydramine HCl (Benadryl) 25 mg 1X ONCE PO ; Start 01/21/19 at 01:15; Stop 01/21/19 at 01:19; Status DC Oxycodone/ Acetaminophen (Percocet 5/325) 1 tab PRN Q4HRS PRN PO PAIN; Start 01/22/19 at 08:45 Diphenhydramine HCl (Benadryl) 25 mg PRN QHS PRN PO INSOMNIA Last administered on 01/23/19at 20:47; Start 01/23/19 at 09:30 Active Scripts Active Reported Levothyroxine Sodium 125 Mcg Tablet 1 Tab PO DAILY Macrobid 100 Mg Capsule (Nitrofurantoin Monohyd/M-Cryst) 100 Mg Capsule 1 Cap PO 1X PRN Vitamin B-12 (Cyanocobalamin (Vitamin B-12)) 1,000 Mcg Tablet 5,000 Mcg PO DAILY Vitamin D3 (Cholecalciferol (Vitamin D3)) 1,000 Unit Tablet 2,000 Unit PO DAILY [potassium otc] 99 Mg DAILY Ocuvite Adult 50 Plus Softgel (C,E,Zinc,Copper 24/Om3/Lut/Eric) 1 Each Capsule 1 Each PO DAILY Niaspan (Niacin) 500 Mg Tab.er.24h 1 Tab PO QHS Magnesium (Magnesium Oxide) 400 Mg Capsule 1 Cap PO DAILY Fish Oil 1,200 mg Softgel ([place]-3/Dha/Epa/Fish Oil) 1 Each Capsule. 1 Each PO DAILY Aspir-Low (Aspirin) 81 Mg Tablet. 1 Tab PO DAILY Lisinopril 10 Mg Tablet 1 Tab PO HS Estradiol 1 Mg Tablet 1 Tab PO DAILY Omeprazole 20 Mg Capsule. 1 Cap PO DAILY Lisinopril-Hctz 20-25 Mg Tab (Lisinopril/Hydrochlorothiazide) 1 Each Tablet 1 T ab PO DAILY Vitals/I & O Vital Sign - Last 24 Hours 01/23/19 01/23/19 01/23/19 01/23/19 11:00 15:00 19:42 20:00 Temp 97.7 97.9 97.9 97.7 97.9 97.9 Pulse 69 67 67 Resp 17 17 17 B/P (MAP) 134/68 (90) 141/70 (93) 119/62 (81) Pulse Ox 96 97 96 O2 Delivery Room Air Room Air Room Air Room Air 01/23/19 01/23/19 01/24/19 01/24/19 20:47 23:20 03:20 07:00 Temp 98.1 97.9 97.5 98.1 97.9 97.5 Pulse 67 59 58 63 Resp 16 16 18 B/P (MAP) 119/62 100/49 (66) 106/49 (68) 111/61 (78) Pulse Ox 95 95 94 O2 Delivery Room Air Room Air Room Air 01/24/19 09:15 Pulse 63 B/P (MAP) 111/61 Intake and Output 01/23/19 01/23/19 01/24/19 14:59 22:59 06:59 Intake Total 840 ml 220 ml 200 ml Output Total 1 ml Balance 839 ml 220 ml 200 ml PEEWEE RIVAS MD January 24, 2019 10:08
--- NOTE | 2019-01-24 10:12 | DISCH ---
DISCHARGE INSTRUCTIONS Condition on Discharge Condition on Discharge: Stable Activity After Discharge Activity Instructions for Disc: Other, see below (no lifting over 20 lbs, or strenuous activity) Diet after Discharge Diet after Discharge: Regular Wound Incision Care Wound/Incision Care: Other, see below (may shower, apply dressing to midline wound as needed) Follow-Up Follow up with: Dr Rivas in 2 weeks in office, call for appt [phone] PEEWEE RIVAS MD January 24, 2019 10:12
--- NOTE | 2019-01-24 10:16 | PDOC3 ---
Discharge Summary Visit Information Date of Admission: January 19, 2019 Date of Discharge: January 24, 2019 Admitting Diagnosis: Terminal ileitis Brief Hospital Course Allergies Allergies Coded Allergies Type Severity Reaction Last Updated Verified Sulfa (Sulfonamide Antibiotics) Allergy Intermediate 01/19/19 Yes Vital Signs Vital Signs Date Time Temp Pulse Resp B/P (MAP) Pulse Ox O2 Delivery O2 Flow Rate FiO2 01/24/19 09:15 63 111/61 01/24/19 07:00 97.5 18 94 Room Air 97.5 Brief Hospital Course Ms. 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 She underwent a laparoscopic right colectomy on 01/19/19. Her postoperative course was unremarkable. She had a short expected ileus after which she tolerated PO without difficulty. She was passing gas and a small amount of stool. She appeared stable for discharge on 01/24/19. Discharge Information Condition at Discharge: Stable Follow Up: Weeks (2 weeks) Disposition/Orders: D/C to Home Scheduled Aspirin (Aspir-Low) 81 Mg Tablet., 1 TAB PO DAILY for heart health, #30 Ref 3 (Reported) Entered as Reported by: FELIZ PRESCOTT on 01/18/191300 Last Taken: Unknown Dose on 01/17/19 Last Action: Reviewed on 01/19/191930 by WAYNE BERMEO C,E,Zinc,Copper 24/Om3/Lut/Eric (Ocuvite Adult 50 Plus Softgel) 1 Each Capsule, 1 EACH PO DAILY for supplement, (Reported) Entered as Reported by: FELIZ PRESCOTT on 01/18/19 1304 Last Taken: Unknown Dose on 01/17/19899 Last Action: Reviewed on 01/19/191930 by WAYNE BERMEO Cholecalciferol (Vitamin D3) (Vitamin D3) 1,000 Unit Tablet, 2,000 UNIT PO DAILY for supplement, (Reported) Entered as Reported by: FELIZ PRESCOTT on 01/18/19 1306 Last Taken: Unknown Dose on 01/17/19 09 Last Action: Reviewed on 01/19/191930 by WAYNE BERMEO Cyanocobalamin (Vitamin B-12) (Vitamin B-12) 1,000 Mcg Tablet, 5,000 MCG PO DAILY for supplement, (Reported) Entered as Reported by: FELIZ PRESCOTT on 01/18/19 1307 Last Taken: Unknown Dose on 01/17/19 0900 Last Action: Reviewed on 01/19/191930 by WAYNE BERMEO Estradiol (Estradiol) 1 Mg Tablet, 1 TAB PO DAILY, #30 Ref 11 (Reported) Entered as Reported by: SILVIANO SHER on 05/01/171918 Last Taken: Unknown Dose on 01/18/19 0900 Last Action: Reviewed on 01/19/191930 by WAYNE BERMEO Levothyroxine Sodium (Levothyroxine Sodium) 125 Mcg Tablet, 1 TAB PO DAILY for hypothyroid, #30 Ref 5 (Reported) Entered as Reported by: WAYNE BERMEO on 01/19/191930 Last Action: New Order on 01/19/191930 by WAYNE BERMEO Lisinopril (Lisinopril) 10 Mg Tablet, 1 TAB PO HS for HTN, #30 Ref 5 (Reported) Entered as Reported by: FELIZ PRESCOTT on 01/18/19 1300 Last Taken: Unknown Dose on 01/18/19 220 Last Action: Reviewed on 01/19/191930 by WAYNE BERMEO Lisinopril/Hydrochlorothiazide (Lisinopril-Hctz 20-25 Mg Tab) 1 Each Tablet, 1 TAB PO DAILY, #30 Ref 5 (Reported) Entered as Reported by: SILVIANO SHER on 05/01/171918 Last Taken: Unknown Dose on 01/18/19 0900 Last Action: Reviewed on 01/19/191930 by WAYNE BERMEO Magnesium Oxide (Magnesium) 400 Mg Capsule, 1 CAP PO DAILY for supplement, #30 Ref 3 (Reported) Entered as Reported by: FELIZ PRESCOTT on 01/18/19 1303 Last Taken: Unknown Dose on 01/17/19 0900 Last Action: Reviewed on 01/19/191930 by WAYNE BERMEO Niacin (Niaspan) 500 Mg Tab.er.24h, 1 TAB PO QHS for unknown, #30 Ref 5 (Reported) Entered as Reported by: FELIZ PRESCOTT on 01/18/19 1303 Last Taken: Unknown Dose on 01/17/19 Last Action: Reviewed on 01/19/191930 by WAYNE BERMEO Nitrofurantoin Monohyd/M-Cryst (Macrobid 100 Mg Capsule) 100 Mg Capsule, 1 CAP PO 1X PRN for prevent UTI, #10 (Reported) Entered as Reported by: FELIZ PRESCOTT on 01/18/19 1308 Last Taken: Unknown Dose on 09/21/18 Last Action: Reviewed on 01/19/191930 by WAYNE BERMEO [place]-3/Dha/Epa/Fish Oil (Fish Oil 1,200 mg Softgel) 1 Each Capsule.dr, 1 EACH PO DAILY for supplement, (Reported) Entered as Reported by: FELIZ PRESCOTT on 01/18/19 1302 Last Taken: Unknown Dose on 01/17/19 09 Last Action: Reviewed on 01/19/191930 by WAYNE BERMEO Omeprazole (Omeprazole) 20 Mg Capsule.dr, 1 CAP PO DAILY, #30 Ref 5 (Reported) Entered as Reported by: SILVIANO SHER on 05/01/171918 Last Taken: Unknown Dose on 01/18/19 09 Last Action: Reviewed on 01/19/191930 by WAYNE BERMEO [potassium otc] , 99 MG DAILY for supplement, (Reported) Entered as Reported by: FELIZ PRESCOTT on 01/18/19 1306 Last Taken: Unknown Dose on 01/17/19899 Last Action: HELD on 01/19/19 124 by PEEWEE RIVAS Discontinued Medications Ascorbic Acid/Collagen Hydr (Collagen Plus Vit C Capsule) 1 Each Capsule, 1 EACH PO DAILY for supplement, (Reported) Entered as Reported by: FELIZ PRESCOTT on 01/18/19 130 Last Taken: Unknown Dose on 01/17/19 09 Last Action: Discontinued on 01/19/191930 by WAYNE BERMEO Levothyroxine Sodium (Levothyroxine Sodium) 112 Mcg Tablet, 1 TAB PO DAILY for hypothyroid, #30 Ref 5 (Reported) Entered as Reported by: FELIZ PRESCOTT on 01/18/19 1300 Last Taken: Unknown Dose on 01/19/19 0300 Last Action: Discontinued on 01/19/191930 by WAYNE BERMEO Multivitamin (Multivitamins) 1 Each Tablet, 1 TAB PO DAILY for supplement, #90 Ref 3 (Reported) Entered as Reported by: FELIZ PRESCOTT on 01/18/19 130 Last Taken: Unknown Dose on 01/17/19 09 Last Action: Discontinued on 01/19/191930 by PEEWEE BEASLEY MD January 24, 2019 10:16
[2019-01-24 11:00] VITALS: BP 100/51
--- NOTE | 2019-01-24 11:22 | NUR ---
SW following for discharge planning. Discussed with RN, RN advised no SW needs, and anticipates pt will discharge home today with self care. SW will continue to follow for any discharge planning needs.
--- NOTE | 2019-01-24 13:20 | NUR ---
Pt discharged home with no additional services, ambulated to hospital entrance accompanied by spouse. Ronald drain discontinued prior to discharge. Education and information related to Dx provided to Pt who verbalized understanding and had no further questions. No changes from previous assessment
== END 2019-01-24 13:14 | disposition home or self-care (01) | DRG 330 ==
LOC: OPSVCIP 08:03 → 4 NORTH 14:00
PROVIDERS: ADMIT Surgery; ATTEND Surgery
PROC: 0DTF0ZZ Resection of Right Large Intestine, Open Approach (ICD-10-PCS; principal; 2019-01-19 09:45)
DX: K50.00 Crohn's disease of small intestine without complications (principal); K56.7 Ileus, unspecified; Z79.899 Other long term (current) drug therapy; Z88.2 Allergy status to sulfonamides
CPT/HCPCS: 36415; 80048; 85025; 88307; A7015; J0171; J0360; J0696; J1100; J1170; J1650; J2001; J2250; J2270; J2405; J2704; J2710; J3010; J3490; J7030; J7120; Q0163